=== PATIENT | female | born 1960 | race Caucasian/White ===

== ENCOUNTER → 2016-09-13 | Outpatient (CLI) | payer OTHER ==
[2016-09-13 19:28] LABS: Follicle Stimulating Hormone 32.8 mIU/mL
== END | disposition home or self-care (01) ==
LOC: MMGSC 10:40
PROVIDERS: ATTEND Obstetrics & Gynecology
DX: N95.2 Postmenopausal atrophic vaginitis (principal); R37 Sexual dysfunction, unspecified; F41.8 Other specified anxiety disorders; R61 Generalized hyperhidrosis; G47.00 Insomnia, unspecified; N95.1 Menopausal and female climacteric states
CPT/HCPCS: 36415; 82306; 82607; 82670; 83001; 84403; 84436; 84443; 84481; 86376